=== PATIENT | male | born 1995 | race Caucasian/White ===

== ENCOUNTER 2016-10-25 01:39 | Emergency (ER) | payer SELFPAY ==
[2016-10-25 01:41] VITALS: BMI 24.1
--- NOTE | 2016-10-25 02:13 | ED PDOC ---
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 Pt started experiencing chest pains last night with associated palpitations and left arm discomfort. Pt noted the chest pain to rated at 9/10 that woke the patient up from sleep. However, after palpitations subsided after 5 minutes, patient returned to sleep. However, pt noted that the chest pain persisted and rated at a 8/10 tonight when his second bout of palpitation started at midnight tonight. PMHx: WPW PSHx: Ablation 2015 at [facility] SHx: Lives with family in [place], Denied tobacco, etoh, drugs Meds: None Allergies: NKDA No PMD (hSo Gaming) Past Medical History - Provider Review Nursing Documentation Reviewed: Yes <Basilio Simpson - Last Filed: 10/25/16 03:57> - Past History Past History: No Previous - Tetanus Immunization Tetanus Immunization: Unknown - Cardiac Other/Comment: mcfarland parkinson white syndrome - Pulmonary Hx Respiratory Disorders: No - Neurological Hx Neurological Disorder: No - HEENT Hx HEENT Disorder: No - Renal Hx Renal Disorder: No - Endocrine/Metabolic Hx Endocrine Disorders: No - Hematological/Oncological Hx Blood Disorders: No - Integumentary Hx Dermatological Disorder: No - Musculoskeletal/Rheumatological Hx Musculoskeletal Disorders: No - Gastrointestinal Hx Gastrointestinal Disorders: No - Genitourinary/Gynecological Hx Genitourinary Disorders: No - Psychiatric Hx Psychophysiologic Disorder: No Hx Substance Use: No - Surgical History Other/Comment: oblation <Sho Gaming - Last Filed: 10/26/16 07:43> Family/Social History - Physician Review Nursing Documentation Reviewed: Yes Family/Social History: No Known Family HX <Basilio Simpson - Last Filed: 10/25/16 03:57> Smoking Status: Never Smoked Hx Alcohol Use: No Hx Substance Use: No <Sho Gaming - Last Filed: 10/26/16 07:43> Allergies/Home Meds <Basilio Simpson - Last Filed: 10/25/16 03:57> <Sho Gaming - Last Filed: 10/26/16 07:43> Allergies/Adverse Reactions: Allergies No Known Allergies Allergy (Verified 10/25/16 01:40) Home Medications: Home Meds Medication Instructions Recorded Confirmed No Known Home Med 10/25/16 10/25/16 Review of Systems - Review of Systems Constitutional: Normal. absent: Fevers Respiratory: Normal. absent: SOB Cardiovascular: Chest Pain, Palpitations Gastrointestinal: Normal. absent: Abdominal Pain, Diarrhea, Nausea, Vomiting Musculoskeletal: Other (+left-arm pain). absent: Back Pain, Neck Pain Neurological: Normal. absent: Headache, Dizziness <Basilio Simpson - Last Filed: 10/25/16 03:57> - Physician Review All systems were reviewed & negative as marked: Yes <Sho Gaming - Last Filed: 10/26/16 07:43> Physical Exam Temperature: Afebrile Blood Pressure: Normal Pulse: Regular Respiratory Rate: Normal Appearance: Positive for: Well-Appearing, Non-Toxic, Comfortable Pain Distress: None Mental Status: Positive for: Alert and Oriented X 3 - Systems Exam Head: Present: Atraumatic, Normocephalic Pupils: Present: PERRL Extroacular Muscles: Present: EOMI Conjunctiva: Present: Normal Mouth: Present: Moist Mucous Membranes Neck: Present: Normal Range of Motion Respiratory/Chest: Present: Clear to Auscultation, Good Air Exchange. No: Respiratory Distress, Accessory Muscle Use Cardiovascular: Present: Regular Rate and Rhythm, Normal S1, S2. No: Murmurs Abdomen: Present: Normal Bowel Sounds. No: Tenderness, Distention, Peritoneal Signs Upper Extremity: Present: Normal Inspection. No: Cyanosis, Edema Lower Extremity: Present: Normal Inspection. No: Edema Neurological: Present: GCS=15, CN II-XII Intact, Speech Normal Skin: Present: Warm, Dry, Normal Color. No: Rashes Psychiatric: Present: Alert, Oriented x 3, Normal Insight, Normal Concentration <Sho Gaming - Last Filed: 10/26/16 07:43> Vital Signs Temp Pulse Resp BP Pulse Ox 10/25/16 15:00 59 L 18 118/71 99 10/25/16 13:42 57 L 18 116/61 99 10/25/16 12:08 58 L 18 118/65 99 10/25/16 10:56 59 L 18 121/68 99 10/25/16 07:54 97.8 F 58 L 16 123/71 99 10/25/16 06:31 60 18 100/61 100 10/25/16 04:28 67 18 124/75 97 10/25/16 01:52 131/79 10/25/16 01:49 97.9 F 71 18 100 Medical Decision Making - Lab Interpretations I have reviewed the lab results: Yes - EKG Interpretation Interpreted by ED Physician: Yes Type: 12 lead EKG <Basilio Simpson - Last Filed: 10/25/16 03:57> <Sho Gaming - Last Filed: 10/26/16 07:43> ED Course and Treatment: Pt seen and evaluated with medical scribe. Pt, whose past medical history includes WPW, presented complaining of chest pain with associated palpitations and left arm pain. Aware and agree with HPI, clinical findings, plan, and management. Plan: -- EKG -- Chest X-ray -- Labs, troponin -- Reassess and disposition 10/25/16 03:57 Case discussed with medical scribe environmental law professor, who is aware and agrees with plan. (Basilio Simpson) 10/25/16 02:14 21 M with pMHx of WPW s/p ablation presented with CP -- EKG -- serial trops -- CBC -- CMP reassess and dispo (Sho Gaming) - Lab Interpretations Lab Results: 10/25/16 06:30 10/25/16 06:30 Lab Results 10/25/16 13:15: PT 11.4, INR 1.06, APTT 28.0, D-Dimer, Quantitative 0.19, TSH 3rd Generation 3.13 10/25/16 06:30: WBC 5.8, RBC 4.87, Hgb 14.0, Hct 41.1 L, MCV 84.4, MCH 28.7, MCHC 34.1, RDW 11.7, Plt Count 243, MPV 11.7 H, Gran % 39.2 L, Lymph % (Auto) 44.8 H, [place] % (Auto) 8.4 H, Eos % (Auto) 6.9 H, Baso % (Auto) 0.7, Gran # 2.27 , Lymph # 2.6, [place] # 0.5, Eos # 0.4, Baso # 0.04, Sodium 142, Potassium 4.6, Chloride 103, Carbon Dioxide 24, Anion Gap 20, BUN 8, Creatinine 0.9, Est GFR ( Amer) > 60, Est GFR (Non-Af Amer) > 60, Random Glucose 98, Calcium 10.0 , Phosphorus 4.9 H, Magnesium 1.9, Troponin I < 0.01 10/25/16 02:52: Sodium 141, Potassium 4.0, Chloride 103, Carbon Dioxide 27, Anion Gap 15, BUN 8, Creatinine 0.9, Est GFR ( Amer) > 60, Est GFR (Non- Af Amer) > 60, Random Glucose 103, Calcium 10.0, Total Bilirubin 0.7, AST 21, ALT 21, Alkaline Phosphatase 89, Troponin I < 0.01, Total Protein 7.2, Albumin 4.3, Globulin 2.9, Albumin/Globulin Ratio 1.5 10/25/16 02:30: WBC 5.3, RBC 4.55, Hgb 13.3 L, Hct 38.4 L, MCV 84.4, MCH 29.2, MCHC 34.6, RDW 11.8, Plt Count 278, MPV 11.8 H, Gran % 50.9, Lymph % (Auto) 34.3 , [place] % (Auto) 7.3 H, Eos % (Auto) 6.6 H, Baso % (Auto) 0.9, Gran # 2.70, Lymph # 1.8, [place] # 0.4, Eos # 0.4, Baso # 0.05 - RAD Interpretation Radiology Orders: 10/25/16 11:35 CHEST TWO VIEWS (PA/LAT) [RAD] Routine - Medication Orders Current Medication Orders: Discontinued Medications Pantoprazole Sodium (Protonix Ec Tab) 40 mg PO ACB [facility] Last Admin: 10/25/16 07:49 Dose: 40 MG Disposition/Present on Arrival <Basilio Simpson - Last Filed: 10/25/16 03:57> - Present on Arrival Any Indicators Present on Arrival: No History of DVT/PE: No History of Uncontrolled Diabetes: No Urinary Catheter: No History of Decub. Ulcer: No History Surgical Site Infection Following: None - Disposition Have Diagnosis and Disposition been Completed?: Yes Disposition Time: 04:00 <Sho Gaming - Last Filed: 10/26/16 07:43> - Disposition Diagnosis: Chest pain Disposition: AGAINST MEDICAL ADVICE Condition: GOOD Discharge Instructions (ExitCare): Chest Pain (ED)
[2016-10-25 02:39] LABS: ADD MANUAL DIFF? NO
[2016-10-25 02:41] LABS: BASO # 0.05 K/mm3 (0.0-2.0); BASO % 0.9 % (0.0-3.0); EOS # 0.4 (0.0-0.7); EOS % 6.6 % (1.5-5.0); GRAN % 50.9 % (50.0-68.0); HEMATOCRIT 38.4 % (42.0-52.0); LYMPH # 1.8 (1.2-3.4); LYMPH % 34.3 % (22.0-35.0); MEAN CELL VOLUME 84.4 fL (80.0-105.0); MEAN CORPUSCULAR HEMOGLOBIN 29.2 pg (25.0-35.0); MEAN CORPUSCULAR HGB CONC 34.6 g/dl (31.0-37.0); MEAN PLATELET VOLUME 11.8 fl (7.0-11.0); MONO # 0.4 (0.1-0.6); MONO % 7.3 % (1.0-6.0); PLATELET COUNT 278 10^3/uL (120.0-450.0); RED CELL DISTRIBUTION WIDTH 11.8 % (11.5-14.5); WHITE BLOOD COUNT 5.3 10^3/ul (4.5-11.0)
[2016-10-25 03:19] LABS: ALB/GLOB RATIO 1.5 (1.1-1.8); ALKALINE PHOSPHATASE 89 U/L (38-133); ALT/SGPT 21 U/L (7-56); AST/SGOT 21 U/L (15-59); BILIRUBIN,TOTAL 0.7 mg/dL (0.2-1.3); BLOOD UREA NITROGEN 8 mg/dL (7-21); CARBON DIOXIDE 27 mmol/L (21-33); CHLORIDE 103 mmol/L (98-107); GFR AFRICAN-AMERICAN > 60; GLUCOSE,RANDOM 103 mg/dL (70-110); SODIUM 141 mmol/L (132-148); TOTAL PROTEIN 7.2 g/dL (5.8-8.3)
[2016-10-25 03:28] LABS: TROPONIN I < 0.01 ng/mL
--- NOTE | 2016-10-25 04:34 | CP.PCM.HP ---
<Ian Shipley - Last Filed: 10/25/16 05:02> History of Present Illness - History of Present Illness History of Present Illness: CC: Chest pain and palpitations HPI: This is a 21 yo male with PMH of WPW s/p ablation January-February 2016 who presents with chest pain and sensation of palpitations x2 days. Patient states the symptoms began yesterday, but resolved without issue before going to bed. Today, the symptoms returned and did not improve, and he became dizzy with sensation of room spinning, so patient presented to the ED. Currently at time of exam, tightness and palpitations are resolved, and patient denies shortness of breath, sensation of room spinning, focal weakness, cough, nausea/ emesis. PMH: As above PSH: Cardiac ablation 2015 FHx: Tachycardia (Father, Brother), Cancer (Mother) SHx: Denies tobacco, alcohol, illicits/IVDA PMD: None, follows a [employer] in [place] Present on Admission - Present on Admission Any Indicators Present on Admission: No History of DVT/PE: No History of Uncontrolled Diabetes: No Urinary Catheter: No Review of Systems - Constitutional Constitutional: absent: Chills, Fever, Malaise, Weakness - EENT Eyes: absent: Blurred Vision, Change in Vision, Loss of Vision Ears: Dizziness (with sensation of room spinning, resolved prior to presentation ) Nose/Mouth/Throat: absent: Dysphagia, Sore Throat - Cardiovascular Cardiovascular: Chest Pain (chest tightness concurrent with palpitations and dizziness/room spinning sensation), Pain Radiating to Arm/Neck/Jaw (into left shoulder), Lightheadedness, Palpitations. absent: Dyspnea, Irregular Heart Rhythm, Rapid Heart Rate, Syncope - Respiratory Respiratory: absent: Cough, Dyspnea, Hemoptysis - Gastrointestinal Gastrointestinal: Abdominal Pain, Diarrhea (x3 days), Heartburn, Nausea. absent : Constipation, Vomiting - Genitourinary Genitourinary: absent: Difficulty Urinating, Dysuria, Flank Pain, Hematuria - Musculoskeletal Musculoskeletal: absent: Back Pain, Muscle Weakness, Numbness - Integumentary Integumentary: absent: Pruritus, Rash - Neurological Neurological: Dizziness, Vertigo. absent: Numbness, Focal Weakness, Frequent Falls, Loss of Vision, Syncope, Weakness, Other Visual Disturbances - Psychiatric Psychiatric: absent: Anxiety - Endocrine Endocrine: Palpitations. absent: Fatigue Past Patient History - Tetanus Immunizations Tetanus Immunization: Unknown - Past Social History Smoking Status: Never Smoked - CARDIAC Other/Comment: castro parkinson white syndrome - PULMONARY Hx Respiratory Disorders: No - NEUROLOGICAL Hx Neurological Disorder: No - HEENT Hx HEENT Problems: No - RENAL Hx Chronic Kidney Disease: No - ENDOCRINE/METABOLIC Hx Endocrine Disorders: No - HEMATOLOGICAL/ONCOLOGICAL Hx Blood Disorders: No - INTEGUMENTARY Hx Dermatological Problems: No - MUSCULOSKELETAL/RHEUMATOLOGICAL Hx Musculoskeletal Disorders: No - GASTROINTESTINAL Hx Gastrointestinal Disorders: No - GENITOURINARY/GYNECOLOGICAL Hx Genitourinary Disorders: No - PSYCHIATRIC Hx Psychophysiologic Disorder: No Hx Substance Use: No - SURGICAL HISTORY Other/Comment: oblation Meds Allergies/Adverse Reactions: Allergies Allergy/AdvReac Type Severity Reaction Status Date / Time No Known Allergies Allergy Verified 10/25/16 01:40 Physical Exam - Constitutional Appears: Well, Non-toxic, No Acute Distress Additional comments: Resting comfortably in bed - Head Exam Head Exam: ATRAUMATIC, NORMAL INSPECTION, NORMOCEPHALIC - Eye Exam Eye Exam: EOMI, Normal appearance. absent: Conjunctival injection, Scleral icterus Pupil Exam: absent: Irregular, Unequal - ENT Exam ENT Exam: Mucous Membranes Moist - Respiratory Exam Respiratory Exam: Clear to Auscultation Bilateral, NORMAL BREATHING PATTERN. absent: Accessory Muscle Use, Chest Wall Tenderness, Decreased Breath Sounds, Rales, Rhonchi, Wheezes - Cardiovascular Exam Cardiovascular Exam: REGULAR RHYTHM, RRR, +S1, +S2. absent: Bradycardia, Tachycardia, Irregular Rhythm, +S4 - GI/Abdominal Exam GI & Abdominal Exam: Normal Bowel Sounds, Soft, Tenderness (mild tenderness to palpation along abdominal midline immediately inferior to xiphoid process). absent: Diminished Bowel Sounds, Firm, Guarding, Hyperactive Bowel Sounds, Hypoactive Bowel Sounds, Rigid - Rectal Exam Rectal Exam: Deferred - Extremities Exam Extremities exam: Positive for: normal capillary refill, normal inspection, pedal pulses present. Negative for: calf tenderness, pedal edema, tenderness - Neurological Exam Neurological exam: Alert, Oriented x3 - Psychiatric Exam Psychiatric exam: Normal Affect, Normal Mood - Skin Skin Exam: Dry, Intact, Normal Color, Warm Results - Vital Signs Recent Vital Signs: Last Vital Signs Temp 97.9 F 10/25/16 01:49 Pulse 67 10/25/16 04:28 Resp 18 10/25/16 04:28 BP 124/75 10/25/16 04:28 Pulse Ox 97 10/25/16 04:28 - Labs Result Diagrams: 10/25/16 02:30 10/25/16 02:52 Labs: Laboratory Results - last 24 hr 10/25/16 10/25/16 02:30 02:52 WBC 5.3 RBC 4.55 Hgb 13.3 L Hct 38.4 L MCV 84.4 MCH 29.2 MCHC 34.6 RDW 11.8 Plt Count 278 MPV 11.8 H Gran % 50.9 Lymph % (Auto) 34.3 [place] % (Auto) 7.3 H Eos % (Auto) 6.6 H Baso % (Auto) 0.9 Gran # 2.70 Lymph # 1.8 [place] # 0.4 Eos # 0.4 Baso # 0.05 Sodium 141 Potassium 4.0 Chloride 103 Carbon Dioxide 27 Anion Gap 15 BUN 8 Creatinine 0.9 Est GFR ( Amer) > 60 Est GFR (Non-Af Amer) > 60 Random Glucose 103 Calcium 10.0 Total Bilirubin 0.7 AST 21 ALT 21 Alkaline Phosphatase 89 Troponin I < 0.01 Total Protein 7.2 Albumin 4.3 Globulin 2.9 Albumin/Globulin Ratio 1.5 Assessment & Plan - Assessment and Plan (Free Text) Assessment: This is a 21 yo male with PMH of WPW s/p ablation January-February 2016 who presents with chest pain and sensation of palpitations x2 days. He is being admitted for telemetry obs due to history of WPW. Plan: 1) Chest pain/palpitations -ACS vs WPW vs Reflux vs anxiety -Trop x1 negative, trending 2 more q8 -EKG notable for WPW, otherwise unremarkable, repeat EKG in AM -Chest pain resolved without medications, continue to monitor -Heart-healthy decaf diet -Cardio consulted, appreciate any recs -Protonix ACB 40mg daily Dispo: Telemetry obs, pending Cardio's input FEN: Heart-healthy diet Access: Peripheral IV Consults: Cardio Ppx: Protonix for GI, SCDs for DVT Patient seen, reviewed, and discussed with attending, Dr. Richards. - Date & Time Date: 10/25/16 Time: 05:09 Decision To Admit - Pt Status Changed To: Hospital Disposition Of: Observation - . Bed Request Type: Telemetry <Gwen Richards - Last Filed: 10/25/16 06:02> Results - Vital Signs Recent Vital Signs: Last Vital Signs Temp 97.9 F 10/25/16 01:49 Pulse 67 10/25/16 04:28 Resp 18 10/25/16 04:28 BP 124/75 10/25/16 04:28 Pulse Ox 97 10/25/16 04:28 - Labs Result Diagrams: 10/25/16 02:30 10/25/16 02:52 Attending/Attestation - Attestation I have personally seen and examined this patient.: Yes I have fully participated in the care of the patient.: Yes I have reviewed all pertinent clinical information: Yes Notes (Text): 10/25/16 05:59 Patient was seen when he was in the ER in room # 9. Agree with history , physical examination, assessment and plan. This 21 year old male with history of WPW syndrome, ablation one year ago at [facility] in [facility], complains of palpitation, chest pain.
[2016-10-25 06:45] LABS: ADD MANUAL DIFF? NO
[2016-10-25 07:05] LABS: BLOOD UREA NITROGEN 8 mg/dL (7-21); CARBON DIOXIDE 24 mmol/L (21-33); CHLORIDE 103 mmol/L (98-107); GFR AFRICAN-AMERICAN > 60; GLUCOSE,RANDOM 98 mg/dL (70-110); MAGNESIUM 1.9 mg/dL (1.7-2.2); PHOSPHOROUS 4.9 mg/dL (2.5-4.5); POTASSIUM 4.6 mmol/L (3.6-5.0); SODIUM 142 mmol/L (132-148)
[2016-10-25 07:10] LABS: BASO # 0.04 K/mm3 (0.0-2.0); BASO % 0.7 % (0.0-3.0); EOS # 0.4 (0.0-0.7); EOS % 6.9 % (1.5-5.0); GRAN # 2.27 (1.4-6.5); GRAN % 39.2 % (50.0-68.0); HEMATOCRIT 41.1 % (42.0-52.0); LYMPH # 2.6 (1.2-3.4); LYMPH % 44.8 % (22.0-35.0); MEAN CELL VOLUME 84.4 fL (80.0-105.0); MEAN CORPUSCULAR HEMOGLOBIN 28.7 pg (25.0-35.0); MEAN CORPUSCULAR HGB CONC 34.1 g/dl (31.0-37.0); MEAN PLATELET VOLUME 11.7 fl (7.0-11.0); MONO # 0.5 (0.1-0.6); MONO % 8.4 % (1.0-6.0); PLATELET COUNT 243 10^3/uL (120.0-450.0); RED CELL DISTRIBUTION WIDTH 11.7 % (11.5-14.5); WHITE BLOOD COUNT 5.8 10^3/ul (4.5-11.0)
[2016-10-25 07:16] LABS: TROPONIN I < 0.01 ng/mL
[2016-10-25] MEDS ORDERED: Pantoprazole 40 mg EC Tab PO SCH (07:30)
[2016-10-25 07:57] VITALS: TEMP 97.8; O2SAT 99
[2016-10-25 10:56] VITALS: RESP 18
--- NOTE | 2016-10-25 13:02 | CARD ---
APPROVED REPORT EKG Measurement Heart [id number] <Conclusion> Sinus bradycardia with sinus arrhythmia [id number] Abnormal ECG
--- NOTE | 2016-10-25 13:04 | CARD ---
APPROVED REPORT EKG Measurement Heart [id number] [place] [id number] <Conclusion> Normal sinus rhythm [id number]-Gpvsg Abnormal ECG
--- NOTE | 2016-10-25 13:06 | CON ---
DATE: 10/25/2016 REASON FOR CONSULTATION: Palpitation, WPW. HISTORY OF PRESENT ILLNESS: The patient is a 21-year-old male from the [place] who was di agnosed with WPW 2 years ago, underwent ablation at [facility] and was not placed on any med ications after that. The patient lost to follow up to the [facility] electrophysiology team after he lost his insurance. He presented because of palpitation and dizziness. The patient denies any sync ope. The patient did also report sharp chest discomfort. SOCIAL HISTORY: The patient is a nonsmoker. He works in a warehouse. MEDICATIONS: Protonix 40 mg p.o. once a day. REVIEW OF SYSTEMS: No nausea or vomiting, no fever or chills. PHYSICAL EXAMINATION: GENERAL: The patient is a very young middle-aged male who does not appear to be in acute distress. VITAL SIGNS: Blood pressure 121/68, heart rate 59, temperature 97.8, respirations 16. HEENT: Normocephalic. NECK: No JVD. CHEST: Clear. HEART: S1, S2 regular. ABDOMEN: Soft. EXTREMITIES: No edema. LABORATORY DATA: SMA-7 within normal limits. Two sets of troponins are negative. CBC: WBC 5.8, he moglobin 14, hematocrit 41.1, platelet count 243,000. EKGs revealed sinus arrhythmia, accelerated conduction with preexcitation. ASSESSMENT: Exebz-Iryrjapou-Wvmqy, status post ablation. The patient presents because of palpitatio n and dizziness. Consider recurrence of arrhythmia such as atrial fibrillation or supraventricular t achycardia. RECOMMENDATIONS: Continue telemetry monitoring. Obtain TSH level, D-dimer, PT and PTT as well as an echocardiogram. EP consult has been requested. Colt Marie MD cc: [id number] TT: 10/25/2016 13:05:32 Confirmation # [id number] Dictation # [id number] mn
[2016-10-25 14:05] LABS: INR 1.06 (0.93-1.08)
[2016-10-25 14:06] LABS: D DIMER 0.19 mg/L FEU (0-0.50)
--- NOTE | 2016-10-25 15:59 | RAD ---
HISTORY: chest pain COMPARISON: No prior. TECHNIQUE: Chest PA and lateral FINDINGS: LUNGS: No active pulmonary disease. PLEURA: No significant pleural effusion identified. No pneumothorax apparent. CARDIOVASCULAR: Normal. OSSEOUS STRUCTURES: No significant abnormalities. VISUALIZED UPPER ABDOMEN: Normal. OTHER FINDINGS: None. IMPRESSION: No active disease.
[2016-10-25 16:03] VITALS: BP 118/71; PULSE 59
--- NOTE | 2016-10-25 16:34 | CP.PCM.DIS ---
<Paulino Torres - Last Filed: 10/25/16 17:06> Provider - Provider Date of Admission: 10/25/16 04:05 Attending physician: Bean Leo MD Consults: Cardiology: Cynthia EP: Tay Time Spent in preparation of Discharge (in minutes): 45 Hospital Course - Lab Results Lab Results: Most Recent Lab Values WBC 5.8 10^3/ul (4.5-11.0) 10/25/16 06:30 RBC 4.87 10^6/uL (3.5-6.1) 10/25/16 06:30 Hgb 14.0 gm/dL (14.0-18.0) 10/25/16 06:30 Hct 41.1 % (42.0-52.0) L 10/25/16 06:30 MCV 84.4 fL (80.0-105.0) 10/25/16 06:30 MCH 28.7 pg (25.0-35.0) 10/25/16 06:30 MCHC 34.1 g/dl (31.0-37.0) 10/25/16 06:30 RDW 11.7 % (11.5-14.5) 10/25/16 06:30 Plt Count 243 10^3/uL (120.0-450.0) 10/25/16 06:30 MPV 11.7 fl (7.0-11.0) H 10/25/16 06:30 Gran % 39.2 % (50.0-68.0) L 10/25/16 06:30 Lymph % (Auto) 44.8 % (22.0-35.0) H 10/25/16 06:30 [place] % (Auto) 8.4 % (1.0-6.0) H 10/25/16 06:30 Eos % (Auto) 6.9 % (1.5-5.0) H 10/25/16 06:30 Baso % (Auto) 0.7 % (0.0-3.0) 10/25/16 06:30 Gran # 2.27 (1.4-6.5) 10/25/16 06:30 Lymph # 2.6 (1.2-3.4) 10/25/16 06:30 [place] # 0.5 (0.1-0.6) 10/25/16 06:30 Eos # 0.4 (0.0-0.7) 10/25/16 06:30 Baso # 0.04 K/mm3 (0.0-2.0) 10/25/16 06:30 PT 11.4 Seconds (9.9-11.8) 10/25/16 13:15 INR 1.06 (0.93-1.08) 10/25/16 13:15 APTT 28.0 Seconds (23.7-30.8) 10/25/16 13:15 D-Dimer, Quantitative 0.19 mg/L FEU (0-0.50) 10/25/16 13:15 Sodium 142 mmol/L (132-148) 10/25/16 06:30 Potassium 4.6 mmol/L (3.6-5.0) 10/25/16 06:30 Chloride 103 mmol/L (98-107) 10/25/16 06:30 Carbon Dioxide 24 mmol/L (21-33) 10/25/16 06:30 Anion Gap 20 (10-20) 10/25/16 06:30 BUN 8 mg/dL (7-21) 10/25/16 06:30 Creatinine 0.9 mg/dL (0.5-1.4) 10/25/16 06:30 Est GFR ( Amer) > 60 10/25/16 06:30 Est GFR (Non-Af Amer) > 60 10/25/16 06:30 Random Glucose 98 mg/dL (70-110) 10/25/16 06:30 Calcium 10.0 mg/dL (8.4-10.5) 10/25/16 06:30 Phosphorus 4.9 mg/dL (2.5-4.5) H 10/25/16 06:30 Magnesium 1.9 mg/dL (1.7-2.2) 10/25/16 06:30 Total Bilirubin 0.7 mg/dL (0.2-1.3) 10/25/16 02:52 AST 21 U/L (15-59) 10/25/16 02:52 ALT 21 U/L (7-56) 10/25/16 02:52 Alkaline Phosphatase 89 U/L (38-133) 10/25/16 02:52 Troponin I < 0.01 ng/mL 10/25/16 06:30 Total Protein 7.2 g/dL (5.8-8.3) 10/25/16 02:52 Albumin 4.3 g/dL (3.0-4.8) 10/25/16 02:52 Globulin 2.9 gm/dL 10/25/16 02:52 Albumin/Globulin Ratio 1.5 (1.1-1.8) 10/25/16 02:52 TSH 3rd Generation 3.13 mIU/mL (0.46-4.68) 10/25/16 13:15 - Hospital Course Hospital Course: Upon Admission: 21yo M with PMHx of WPW s/p ablation 2 years ago comes for evaluation after palpitations. Patient has been lost to follow up after his previous ablation. Patient also c/o chest pain which radiates to the left arm. Initial EKG with evidence of WPW was found. Cardiology evaluation was obtained, who recommended further work up by a [facility] [employer]. Troponins were negative x2. TSH was wnl. Patient states that he would not like to stay in order to complete his cardiac work up and would like to leave AMA. It was explained to him that completing his cardiac work-up including the EP evaluation was very important for his health, however, he signed out AMA and states that he would like to return to the [place] and follow up with his previous EP. All risks were explained to the patient in detail. All questions were answered. Patient expressed understanding and signed out against medical advice. 1. [id number]; Workup incomplete. Troponins negative x2. Patient will f/u with his EP in [place]. 2. Atypical Chest pain; resolved. Troponin negative x2 Patient signed out Against Medical Advice. Discharge Exam - Head Exam Head Exam: ATRAUMATIC, NORMAL INSPECTION, NORMOCEPHALIC - Eye Exam Eye Exam: EOMI, Normal appearance, PERRL. absent: Scleral icterus Pupil Exam: PERRL - ENT Exam ENT Exam: Mucous Membranes Moist - Neck Exam Neck exam: Full Rom - Respiratory Exam Respiratory Exam: Clear to PA & Lateral, NORMAL BREATHING PATTERN, UNREMARKABLE. absent: Wheezes, Respiratory Distress - Cardiovascular Exam Cardiovascular Exam: REGULAR RHYTHM, RRR, +S1, +S2. absent: JVD - GI/Abdominal Exam GI & Abdominal Exam: Normal Bowel Sounds, Unremarkable. absent: Distended, Guarding, Soft - Extremities Exam Extremities exam: normal inspection - Back Exam Back exam: NORMAL INSPECTION - Neurological Exam Neurological exam: Alert, CN II-XII Intact, Oriented x3 - Psychiatric Exam Psychiatric exam: Normal Affect, Normal Mood - Skin Skin Exam: Dry, Intact, Normal Color, Warm Discharge Plan - Follow Up Plan Condition: GOOD Disposition: AGAINST MEDICAL ADVICE Instructions: Chest Pain (ED) <Bean Leo MD - Last Filed: 10/26/16 12:31> Hospital Course - Lab Results Lab Results: Most Recent Lab Values WBC 5.8 10^3/ul (4.5-11.0) 10/25/16 06:30 RBC 4.87 10^6/uL (3.5-6.1) 10/25/16 06:30 Hgb 14.0 gm/dL (14.0-18.0) 10/25/16 06:30 Hct 41.1 % (42.0-52.0) L 10/25/16 06:30 MCV 84.4 fL (80.0-105.0) 10/25/16 06:30 MCH 28.7 pg (25.0-35.0) 10/25/16 06:30 MCHC 34.1 g/dl (31.0-37.0) 10/25/16 06:30 RDW 11.7 % (11.5-14.5) 10/25/16 06:30 Plt Count 243 10^3/uL (120.0-450.0) 10/25/16 06:30 MPV 11.7 fl (7.0-11.0) H 10/25/16 06:30 Gran % 39.2 % (50.0-68.0) L 10/25/16 06:30 Lymph % (Auto) 44.8 % (22.0-35.0) H 10/25/16 06:30 [place] % (Auto) 8.4 % (1.0-6.0) H 10/25/16 06:30 Eos % (Auto) 6.9 % (1.5-5.0) H 10/25/16 06:30 Baso % (Auto) 0.7 % (0.0-3.0) 10/25/16 06:30 Gran # 2.27 (1.4-6.5) 10/25/16 06:30 Lymph # 2.6 (1.2-3.4) 10/25/16 06:30 [place] # 0.5 (0.1-0.6) 10/25/16 06:30 Eos # 0.4 (0.0-0.7) 10/25/16 06:30 Baso # 0.04 K/mm3 (0.0-2.0) 10/25/16 06:30 PT 11.4 Seconds (9.9-11.8) 10/25/16 13:15 INR 1.06 (0.93-1.08) 10/25/16 13:15 APTT 28.0 Seconds (23.7-30.8) 10/25/16 13:15 D-Dimer, Quantitative 0.19 mg/L FEU (0-0.50) 10/25/16 13:15 Sodium 142 mmol/L (132-148) 10/25/16 06:30 Potassium 4.6 mmol/L (3.6-5.0) 10/25/16 06:30 Chloride 103 mmol/L (98-107) 10/25/16 06:30 Carbon Dioxide 24 mmol/L (21-33) 10/25/16 06:30 Anion Gap 20 (10-20) 10/25/16 06:30 BUN 8 mg/dL (7-21) 10/25/16 06:30 Creatinine 0.9 mg/dL (0.5-1.4) 10/25/16 06:30 Est GFR ( Amer) > 60 10/25/16 06:30 Est GFR (Non-Af Amer) > 60 10/25/16 06:30 Random Glucose 98 mg/dL (70-110) 10/25/16 06:30 Calcium 10.0 mg/dL (8.4-10.5) 10/25/16 06:30 Phosphorus 4.9 mg/dL (2.5-4.5) H 10/25/16 06:30 Magnesium 1.9 mg/dL (1.7-2.2) 10/25/16 06:30 Total Bilirubin 0.7 mg/dL (0.2-1.3) 10/25/16 02:52 AST 21 U/L (15-59) 10/25/16 02:52 ALT 21 U/L (7-56) 10/25/16 02:52 Alkaline Phosphatase 89 U/L (38-133) 10/25/16 02:52 Troponin I < 0.01 ng/mL 10/25/16 06:30 Total Protein 7.2 g/dL (5.8-8.3) 10/25/16 02:52 Albumin 4.3 g/dL (3.0-4.8) 10/25/16 02:52 Globulin 2.9 gm/dL 10/25/16 02:52 Albumin/Globulin Ratio 1.5 (1.1-1.8) 10/25/16 02:52 TSH 3rd Generation 3.13 mIU/mL (0.46-4.68) 10/25/16 13:15 Attending/Attestation - Attestation I have personally seen and examined this patient.: Yes I have fully participated in the care of the patient.: Yes I have reviewed all pertinent clinical information, including history, physical exam and plan: Yes Notes (Text): 10/26/16 12:29 Patient is alert, awake and oriented, does not want to stay in the hospital, this was discussed in detail with the help of spanish translator.The risk was discussed.Patient is planning to follow up with his EP opthalmic tech in [place], [place].He has signed against medical advice.He was asymptometic at the time of discharge.
== END 2016-10-25 16:05 | disposition left against medical advice (07) ==
LOC: ED 01:39 → UNDOADMOB 04:05 → ERH 04:05 → ED 16:05 → ERH 16:33
DX: R07.9 Chest pain, unspecified (principal); I45.6 Pre-excitation syndrome